=== PATIENT | male | born 2005 | race Caucasian/White ===

== ENCOUNTER 2023-11-07 13:56 | Emergency (ER) | payer SELFPAY ==
[~2023-11-07] VITALS: Ht 177.8 cm; Wt 100.9 kg
[2023-11-07 14:00] VITALS: BP 118/79; TEMP 98.3
[2023-11-07 16:44] VITALS: PULSE 76
== END 2023-11-07 16:44 | disposition home or self-care (01) ==
LOC: COL.ER 13:56
DX: S62.396A Other fracture of fifth metacarpal bone, right hand, initial encounter for closed fracture (principal); W22.09XA Striking against other stationary object, initial encounter; Y92.89 Other specified places as the place of occurrence of the external cause; Y99.0 Civilian activity done for income or pay